=== PATIENT | female | born 1955 | race Caucasian/White ===

== ENCOUNTER → 2021-08-02 | Outpatient (CLI) | payer MEDICARE, OTHER, SELFPAY ==
--- NOTE | 2021-08-02 14:44 | RAD_ITS ---
EXAM: XR PELVIS, 1 OR 2 VIEWS CLINICAL INDICATION: PAIN TECHNIQUE: Frontal view of the pelvis. This report was created using [employer] [facility] report [employer] technology. COMPARISON: None. FINDINGS: BONES/JOINTS: Mild marginal osteophytes right femoral head. Small bumps along the superior lateral aspects of the femoral necks bilaterally consistent with cam type femoral acetabular impingement. Bilateral facet arthropathy in the lower lumbar spine. No displaced fracture. No destructive or sclerotic lesions. Note that overlapping bowel shadows may however obscure fine detail. Sacroiliac joints are unremarkable. No widening of the pubic symphysis. The articular structures are unremarkable. SOFT TISSUES: Unremarkable. No soft tissue swelling or gas. RAD/Pelvis 1 or 2 Views IMPRESSION: 1. Mild marginal osteophytes right femoral head. Mild degenerative changes right hip. 2. Small bumps along the superior lateral aspects of the femoral necks bilaterally consistent with cam type femoral acetabular impingement. 3. Bilateral facet arthropathy in the lower lumbar spine. Electronically Signed: Josué Morirssey MD at 1:12 EDT ,
[2021-08-02 17:35] LABS: Erythrocyte Sedimentation Rate 9 mm/hr (0-30)
[2021-08-02 17:38] LABS: Absolute Lymphocyte Count 2.04 X10^3/uL (0.83-4.51); Absolute Neutrophil Count 5.7 X10^3/uL (2.0-7.7); Basophil# 0.05 X10^3/uL; Basophil% 0.6 % (0-1); Eosinophil# 0.53 X10^3/uL; Eosinophils% 5.9 % (0-5); Hematocrit 45.9 % (37-47); Lymphocyte # 2.04 X10^3/ul (0.83-4.51); Lymphocyte % 22.8 % (19-41); Mean Corp Hgb Conc 32.7 g/dL (32-36); Mean Corpuscular Hgb 29.4 pg (27.0-32.0); Mean Platelet Vol. 10.4 fl (6.2-12.0); Monocyte# 0.53 X10^3/uL; Monocyte% 5.9 % (0-10); NRBC Flagged by Analyzer 0 % (0-5); Neutrophil # 5.74 X10^3/uL (2.7-7.7); Neutrophil % 64.4 % (47-70); Platelet Count 327 K/mm3 (150-450); RBC Distribution Width CV 13.8 % (11.6-14.6); RBC Distribution Width SD 45.8 fl (35.1-43.9); White Blood Count 8.9 K/mm3 (4.4-11.0)
[2021-08-02 17:57] LABS: ALB/GLOB Ratio 1.2 RATIO (0.9-2.4); AST(SGOT) 29 U/L (15-37); Alanine Aminotransfer ALT/SGPT 48 U/L (13-56); Albumin, Serum 4.1 g/dL (3.2-5.0); Alkaline Phosphatase 71 U/L (45-117); Anion Gap 6 (5-15); BUN 15 mg/dL (7-18); BUN/Creat Ratio 18.7 RATIO (10-20); CRP 5.86 mg/L (0.0-3.0); Calcium,Total 9.5 mg/dL (8.5-10.1); Chloride 110 mmol/L (98-107); EST Glomerular Filtration Rate 76 mL/min (>60); Est Glom Filt Rate - Afr Amer 92 mL/min (>60); Globulin 3.5 g/dL (2.2-4.2); Glucose 97 mg/dL (74-106); Potassium 4.1 mmol/L (3.5-5.1); Protein, Total 7.6 g/dL (6.4-8.2); Sodium Level 142 mmol/L (136-145)
[2021-08-02 20:26] LABS: Rheumatoid Factor < 10.0 IU/mL (<15)
[2021-08-05 09:20] LABS: Hepatitis B Surface Antibody Reactive; Hepatitis B Surface Antigen Non-Reactive (Nonreactive); Hepatitis C Antibody Non-Reactive (Nonreactive)
[2021-08-05 15:41] LABS: ANTINUCLEAR ANTIBODIES DIRECT Negative (Negative)
[2021-08-06 04:07] LABS: QNTFERON TB Mitogen Value > 10.00 IU/mL (.); QNTFERON TB Nil Value 0.01 IU/mL (.); QNTFERON TB1+ Ag Value 0.03 IU/mL (.); QNTFERON TB2+ Ag Value 0.01 IU/mL (.)
[2021-08-06 07:55] LABS: CCP IgG Antibodies 6 units (0-19); QNTIFERON TB Positive Criteria Negative (Negative)
== END | disposition home or self-care (01) ==
PROVIDERS: PCP Family Medicine; Referring Provider Internal Medicine Rheumatology; Visit Provider Internal Medicine Rheumatology
DX: L40.59 Other psoriatic arthropathy (principal); M79.7 Fibromyalgia; M19.041 Primary osteoarthritis, right hand; L40.8 Other psoriasis; K58.9 Irritable bowel syndrome, unspecified; I10 Essential (primary) hypertension; K21.9 Gastro-esophageal reflux disease without esophagitis
CPT/HCPCS: 36415; 72170; 80053; 85025; 85652; 86038; 86140; 86200; 86431; 86480; 86706; 86803; 87340